=== PATIENT | male | born 1980 | race Caucasian/White ===

== ENCOUNTER 2020-08-09 16:23 | Emergency (ER) | payer OTHER ==
[~2020-08-09 16:23] MED LIST: GABAPENTIN600 MG PO; TIZANIDINE HCL4 MG PO; VOLTAREN100 GM TOP
[2020-08-09 17:24] LABS: BILIRUBIN NEGATIVE (NEGATIVE); BLOOD TRACE-INTACT Ery/uL (NEGATIVE); CLARITY CLEAR (CLEAR); COLOR YELLOW (YELLOW); GLUCOSE (U) NORMAL (NORMAL); LEUKOCYTES NEGATIVE Leu/uL (NEGATIVE); NITRITE NEGATIVE (NEGATIVE); PROTEIN TRACE (LOW) mg/dL (NEGATIVE); SPECIFIC GRAVITY >=1.030 (1.001-1.030); UROBILINOGEN 0.2 mg/dL (0.2-1.0); pH 5.5 (5.0-9.0)
[2020-08-09 17:31] LABS: TRANSITIONAL EPITHELIAL CELLS RARE
[2020-08-09 17:32] LABS: CALCIUM OXALATE CRYSTALS MODERATE; MUCOUS TRACE; RENAL EPITHELIAL CELLS RARE
[2020-08-09] MEDS ORDERED: NORCO 5-325 TA1 EACH PO (18:24)
[2020-08-09] MEDS ORDERED: ZOFRAN4 M1 PO (18:24)
[2020-08-09] MEDS ORDERED: FLOMAX0.4 MG PO (18:24)
[2020-09-22] MEDS ORDERED: VOLTAREN100 GM TOP (15:23)
[2020-09-22] MEDS ORDERED: TIZANIDINE HCL4 MG PO (15:23)
[2020-09-22] MEDS ORDERED: GABAPENTIN600 MG PO (15:24)
== END 2020-08-09 19:01 | disposition home or self-care (01) ==
LOC: FER 16:23
PROVIDERS: Emergency Medicine
DX: N13.2 Hydronephrosis with renal and ureteral calculous obstruction (principal)
CPT/HCPCS: 81001; 96372; J1885; J2270

== ENCOUNTER 2021-03-11 17:36 | Emergency (ER) | payer OTHER ==
[~2021-03-11 17:36] MED LIST changes: +FLOMAX0.4 MG PO; +NORCO 5-325 TA1 EACH PO; +ZOFRAN4 M1 PO
[2021-03-11 19:15] LABS: BASOPHIL 0.4 % (0-2); EOSINOPHIL 2.3 % (0-5); HCT 42.4 % (42.0-52.0); HGB 14.1 g/dl (13.2-18.0); MCH 30.6 pg (25.0-31.0); MCHC 33.3 g/dL (32.0-36.0); MONOCYTE 8.5 % (0-12); MPV 8.7 fL (6.0-9.5); NEUTROPHIL 58.3 % (41-80); NRBC 0; PLT 223 K/uL (150-400); RBC 4.61 M/uL (4.70-6.00); RDW 12.3 % (11.5-14.0); WBC 7.4 K/uL (4.0-10.5)
[2021-03-11 19:18] LABS: BILIRUBIN NEGATIVE (NEGATIVE); BLOOD 1+ Ery/uL (NEGATIVE); CLARITY CLEAR (CLEAR); COLOR YELLOW (YELLOW); GLUCOSE (U) NORMAL (NORMAL); LEUKOCYTES NEGATIVE Leu/uL (NEGATIVE); NITRITE NEGATIVE (NEGATIVE); PROTEIN NEGATIVE (NEGATIVE); SPECIFIC GRAVITY 1.025 (1.001-1.030); UROBILINOGEN 0.2 mg/dL (0.2-1.0); pH 6.5 (5.0-9.0)
[2021-03-11 19:26] LABS: SQUAMOUS EPITHELIAL CELLS RARE
[2021-03-11 19:36] LABS: ALBUMIN 3.8 g/dL (3.4-5.0); BILIRUBIN - TOTAL 0.2 mg/dL (0.2-1.0); BUN/CREAT RATIO (CALC) 22.2 RATIO; CREATININE 0.81 mg/dL (0.67-1.17); GLOBULIN (CALCULATION) 3.2 g/dL; POTASSIUM 4.1 mmol/L (3.5-5.1)
[2021-03-11] MEDS ORDERED: PERCOCET 5-3251 EACH PO (20:21)
[2021-03-11] MEDS ORDERED: IBUPROFEN800 MG PO (20:21)
[2021-03-11] MEDS ORDERED: ONDANSETRON ODT4 MG SL (20:21)
[2021-03-11] MEDS ORDERED: FLOMAX0.4 MG PO (20:21)
== END 2021-03-11 20:57 | disposition home or self-care (01) ==
LOC: FER 17:36
PROVIDERS: Internal Medicine
DX: N13.2 Hydronephrosis with renal and ureteral calculous obstruction (principal)
CPT/HCPCS: 36415; 80053; 81001; 85025; J1885; J2405; J7030

== ENCOUNTER 2021-05-12 13:47 | Emergency (ER) | payer OTHER ==
[~2021-05-12 13:47] MED LIST changes: +IBUPROFEN800 MG PO; +ONDANSETRON ODT4 MG SL; +PERCOCET 5-3251 EACH PO
== END 2021-05-12 16:04 | disposition home or self-care (01) ==
LOC: FER 13:47
DX: Z53.21 Procedure and treatment not carried out due to patient leaving prior to being seen by health care provider (principal)

== ENCOUNTER → 2021-05-31 | Emergency (ER) | payer OTHER | END | disposition home or self-care (01) | LOC: FER 19:32 | DX: Z53.21 Procedure and treatment not carried out due to patient leaving prior to being seen by health care provider (principal) ==